=== PATIENT | female | born 1990 | race Caucasian/White ===

== ENCOUNTER 2018-03-07 02:03 | Inpatient (IN) | payer OTHER ==
[~2018-03-07] VITALS: Ht 160 cm; Wt 108.9 kg
[~2018-03-07 02:03] MED LIST: AMOXICILLIN500 M3 PO; EFFEXOR XR150 MG PO; FLUARIX QU60 MCG/0.1 IM; IBUPROFEN800 M1 PO; IBUPROFEN800 MG PO; PERCOCET 325 MG1 TA2 PO; PROGESTERONE100 M1 PO; VENLAFAXINE HY150 MG PO; magic mouthwash PO
--- NOTE | 2018-03-07 08:06 | History & Physical ---
See Addendum General Information and HPI MD Statement: I have seen and personally examined DONNA PRADO and documented this H&P. The patient is a 27 year old female at 38 weeks and 6 days gestation who presented with a chief complaint of contractions. Source of Information: patient, old records Exam Limitations: no limitations History of Present Illness: Patient is a 27 year old female who contacted the service at 2014 on 03/06/18 with contractoins that were getting worse. They started in the am that were irregular and now becoming more frequent Allergies/Medications Allergies: Coded Allergies: doxycycline (Mild, UPSET STOMACH 11/18/15) Home Med list Amoxicillin 500 MG TABLET 1 TAB PO TID strep pharyngitis Ibuprofen 800 MG TABLET 800 MG PO Q6P PRN PAIN SCALE 4-6 Ibuprofen 800 MG TABLET 1 TAB PO Q4-6 PRN PAIN AND INFLAMMATION [magic mouthwash] 10 ML LIQUID 10 ML PO TID SORE THROAT LIDOCAINE, BENADRYL, VISCOUS LIDOCAINE OXYCODONE HCL/ACETAMINOPHEN (Percocet 5-325 MG Tablet) 325 MG/5 MG TAB 1 TAB PO Q3P PRN PAIN SCALE 7-10 VENLAFAXINE HCL (Effexor XR) 150 MG CAP.ER.24H 1 CAP PO DAILY anxiety ( Reported) Compliance With Home Meds: GOOD 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 Para: 3 Last Menstrual Period: 06/07/17 Estimated Delivery Date: 03/14/18 Past manufacturing job titles History: none Past Pregnancies Past Pregnancies: 1 Date of Delivery: 08/2014 Gestational Age: 38 Weight: 3408 Type of Delivery: vaginal Anesthesia: Epidural Place of Delivery: [facility] Complications: [facility] Past Pregnancies: 2 Date of Delivery: 07/2007 Gestational Age: 36 Weight: 3772 Type of Delivery: vaginal Place of Delivery: [facility] Past Pregnancies: 3 Date of Delivery: 10/2009 Gestational Age: 39 Weight: 3772 Type of Delivery: vaginal Place of Delivery: [facility] Complications: nuchal cord Medical History Blood Transfusion Hx: No Neurological: NONE EENT: NONE Cardiovascular: NONE, hypertension Respiratory: NONE Gastrointestinal: NONE Hepatic: NONE Renal: NONE Musculoskeletal: NONE Psychiatric: anxiety Endocrine: NONE Blood Disorders: NONE Cancer(s): NONE POWER SEWING MACHINE OPERATOR/Reproductive: NONE, Hx of cervical dysplasia Surgical History Pertinent Surgical History: non-contributory, , LEEP and gastroschisis surgery Past Family/Social History Psychosocial History Where do you live? Home Who Do You Live With? spouse, child Primary Language: Chinese Smoking Status: Never Smoked ETOH Use: denies use Illicit Drug Use: denies illicit drug use Living Will? 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 EENTM: Denies: no symptoms. Cardiovascular: Denies: no symptoms. Respiratory: Denies: no symptoms. GI: Denies: no symptoms. Genitourinary: Denies: no symptoms. Musculoskeletal: Denies: no symptoms. Skin: Denies: no symptoms. Neurological/Psychological: Reports: anxiety. Hematologic/Endocrine: Denies: no symptoms. Immunologic/Allergic: Denies: no symptoms. All Other Systems: Reviewed and Negative Date of LMP: 06/07/17 Post Menopausal: No Date of Last Pap Smear: 08/06/17 Exam & Diagnostic Data Last 24 Hrs of Vital Signs/I&O Vital Signs Date Time Temp Pulse Resp B/P B/P Pulse O2 O2 Flow FiO2 Mean Ox Delivery Rate 03/07 0243 145/82 Intake & Output 03/07 0800 08/ 0000 03/06 1600 Intake Total Output Total Balance Patient 108.862 kg Weight Obstetric Exam Wgt Gained During : 25 lbs Pelvimetry: Gynecoid Dilation (cm): 7 Effacement (%): 100 Station: -3 Membranes: intact (Intact) Fluid: Intact Fundal Height (cm): 40 Multiple Gestation? No Contractions: Q2-3 #1 - FHR Baseline: 140 Category: 1 Estimated Weight: 3800 Presentation: Cephalic Patient for Induction? No Physical Exam General Appearance Alert, Oriented X3, Cooperative, No Acute Distress Skin No Rashes, Well healed abdominal scar HEENT Atraumatic Neck Supple Cardiovascular Regular Rate Lungs Normal Air Movement Abdomen Soft Neurological Normal Speech, Strength at 5/5 X4 Ext, Sensation Intact Extremities 1+edema Vascular Pulses Symmetrical Breasts Breast appear nl Reproductive (FEMALE) Normal female genitalia Pelvic (FEMALE) Appearance Normal Labs Blood Type & Rh: O negative Antibody Screen: negative Hct/Hgb & Platelets #1: 31.5/168 Hct/Hgb & Platelets #2: 31.6/164 Rubella: immune VDRL #1: negaitve VDRL #2: negative HbsAg: negative HIV #1: negative HIV #2 negative 1 Hr P 3 Hr PG: Negative Group B Strep: negative Initial Ultrasound: wnl Anatomy Ultrasound: wnl per patient Ultrasound for EFW: 7lbs on 02/10/18 per patient Genetic Testing: Negative Last 24 Hrs of Labs/Javier: Microbiology 03/07 0336 URINE ROUT: Urine Culture - COLB Assessment/Plan Assessment/Plan: 27 year old Para 3002 with complicated by HTN, history of gastroschisis surgery, obesity and anxiety now in active labor HTN. On admission PIH labs were wnl and restarted on labetalol with good control of blood pressure. No clinical findings of preeclampsia. Anxiety. Did receive Vistaril with good results. Labor. On admission was 2 cm and now 7 cm. Catagory 1 tracing Pain relief with epidural and good control at present. Anticipate vaginal . EFW clinically 3800 grams and pelvis tested to same x 3 and gynecoid pelvis. GBBS negative. No need for antibiotics. May have had SROM earlier however intact forewaters As Ranked By This Provider Problem List: 1. Hypertension complicating childbirth 2. Obesity affecting in third trimester Core Measures Venous Thromboembolism VTE Risk Factors / No Mechanical VTE Prophylaxis d/t N/A MechProphylax Ordered No VTE Pharm Prophylaxis d/t NA PharmProphylax ordered
--- NOTE | 2018-03-07 08:48 | PN- Obstetrical ---
Subjective Subjective: NO CO EPIDURAL Objective Last 24 Hrs of Vital Signs/I&O Vital Signs Date Time Temp Pulse Resp B/P B/P Pulse O2 O2 Flow FiO2 Mean Ox Delivery Rate 03/07 0834 140/70 03/07 0243 145/82 Intake & Output 03/07 1600 03/07 0800 03/07 0000 Intake Total Output Total Balance Patient 240 lb Weight Physical Exam: PE WELL BUILT WF IN NAD HEENTPERRLA EOMI ABD [id number] EXT -EDEMA Obstetric Exam Dilation (cm): 7 Effacement (%): 80 Station: 0 Membranes: AROM Fluid: thick meconium Multiple Gestation? No Contractions: Q 6 Infant #1 - FHR Baseline: 140 Category: 1 Estimated Weight: 3800 Presentation: Cephalic Assessment/Plan Assessment/Plan ASSESS TERM HTN GDM LABOR PLAN AROM OF FOREBAG PITOCIN ANTICIPATE
--- NOTE | 2018-03-07 15:46 | Labor & Delivery Summary ---
Delivery Summary Vaginal Delivery: Vaginal: vertex Episiotomy/Lacerations: Episiotomy/Lacerations: none Placenta: Placenta: spontanteous, normal, 3 vessel, MECONIUM Anesthesia: block Additional Comments: C MECONIUM DR POZO PRESENT FOR DELIVERY .OVER INTACT PERINEUM SUCTIONED WITH BULB .PLACENTA BY CCT INTACT
--- NOTE | 2018-03-08 06:40 | PN- Post Delivery/GYN ---
Subjective Subjective: NO COMPLAINTS Objective Last 24 Hrs of Vital Signs/I&O Vital Signs Date Time Temp Pulse Resp B/P B/P Pulse O2 O2 Flow FiO2 Mean Ox Delivery Rate 03/07 2100 99.2 102 18 146/86 03/07 1124 155/70 03/07 0834 140/70 Physical Exam: PE OBESE WF IN NAD ABD SOFT NT FUNDUS FIRM NT LOCHIA MODERATE EXT +1 EDEMA-HOMANS Assessment/Plan Assessment/Plan ASSESS S/P PLAN CONT PPC
[2018-03-08 09:14] LABS: ABSOLUTE BASOPHIL COUNT 0 /CUMM (0.0-0.2); ABSOLUTE EOSINOPHIL COUNT 0 /CUMM (0.0-0.7); ABSOLUTE GRANULOCYTE CT 8.3 /CUMM (1.4-6.5); ABSOLUTE LYMPH COUNT 1.8 /CUMM (1.2-3.4); ABSOLUTE MONOCYTE COUNT 0.7 /CUMM (0.10-0.60); BASOPHIL % 0.1 % (0.0-2.0); EOSINOPHIL % 0.4 % (0-5); GRANULOCYTE % 76.9 % (42.2-75.2); MEAN CORPUSCULAR HGB CONC 33.2 G/DL (33.0-37.0); MEAN CORPUSCULAR VOLUME 81.1 FL (81.0-99.0); MEAN PLATELET VOLUME 9.9 FL (7.4-10.4); PLATELET COUNT 151 /CUMM (130-400); RBC DISTRIBUTION WIDTH 14.2 % (11.5-14.5); RED BLOOD CELL CT 3.29 /CUMM (4.20-5.40); WHITE BLOOD CELL COUNT 10.8 /CUMM (4.8-10.8)
[2018-03-08 09:30] LABS: HEMATOCRIT 26.7 % (37-47)
[2018-03-09 08:27] VITALS: BP 130/78
[2018-03-09] MEDS ORDERED: LABETALOL HCL200 M1 PO (11:00)
[2018-03-09] MEDS ORDERED: IBUPROFEN800 M1 PO (12:24)
== END 2018-03-09 12:45 | DRG 774 ==
LOC: GNO 02:03
PROVIDERS: Specialist
PROC: 10E0XZZ Delivery of Products of Conception, External Approach (ICD-10-PCS; principal; 2018-03-07)
DX: O10.92 Unspecified pre-existing hypertension complicating childbirth (principal); O99.214 Obesity complicating childbirth; E66.9 Obesity, unspecified; Z3A.39 39 weeks gestation of pregnancy; Z37.0 Single live birth; Z88.1 Allergy status to other antibiotic agents
CPT/HCPCS: GNOS; 87086; J0690; J1200; J2790; J7120